=== PATIENT | male | born 1990 | race Caucasian/White ===

== ENCOUNTER → 2019-12-13 21:39 | Outpatient (CLI) | payer SELFPAY ==
[2019-12-13 21:56] LABS: HEMATOCRIT 47.3 % (42.0-54.0); LYMPHOCYTES 21.5 % (15-50); MCH 28.8 pg (26.0-34.0); MCHC 33.8 g/dL (31.0-37.0); MCV 85.2 fL (80.0-100.0); MEAN PLATELET VOLUME 10.9 fL (7.4-10.4); NEUTROPHILS 59.4 % (40-80); PLATELET COUNT 173 10x3/uL (130-400); RBC 5.55 10x6/uL (4.20-6.10); RDW 12.7 % (11.5-14.5); WBC 7.2 10x3/uL (4.8-10.8)
== END | disposition home or self-care (01) ==
LOC: D.LABREF 21:39
DX: K92.1 Melena (principal)